=== PATIENT | male | born 1970 | race Asian ===

== ENCOUNTER 2021-04-07 16:34 | Emergency (ER) | payer OTHER | END 2021-04-07 19:00 | disposition home or self-care (01) | LOC: EMS 16:43 | DX: S39.012A Strain of muscle, fascia and tendon of lower back, initial encounter (principal); S80.01XA Contusion of right knee, initial encounter; V49.49XA Driver injured in collision with other motor vehicles in traffic accident, initial encounter; Y93.89 Activity, other specified; Y92.89 Other specified places as the place of occurrence of the external cause; Y99.8 Other external cause status | CPT/HCPCS: 72100; 99284; 73562-TC; Z7502 ==

== ENCOUNTER 2024-10-30 15:19 | Emergency (ER) | payer OTHER ==
[~2024-10-30] VITALS: Ht 170.2 cm; Wt 72.7 kg
[2024-10-30 15:36] VITALS: TEMP 97.6
[2024-10-30] MEDS: KETOROLAC TROMETHAMINE 30 MG/ML VIAL IM ONE (18:14)
[2024-10-30] MEDS: LIDOCAINE 5% TRANSDERMAL PATCH TD ONE (18:16)
[2024-10-30 21:03] VITALS: BP 160/98; PULSE 77; RESP 18; O2SAT 96
[2024-10-30] MEDS ORDERED: METH-812 PO (23:29)
== END 2024-10-30 23:00 | disposition home or self-care (01) ==
LOC: EMS 15:23
DX: S46.912A Strain of unspecified muscle, fascia and tendon at shoulder and upper arm level, left arm, initial encounter (principal); V49.40XA Driver injured in collision with unspecified motor vehicles in traffic accident, initial encounter; V89.2XXA Person injured in unspecified motor-vehicle accident, traffic, initial encounter; Y93.89 Activity, other specified; Y92.488 Other paved roadways as the place of occurrence of the external cause; Y99.8 Other external cause status
CPT/HCPCS: 99284; 29105; 73030; 73070; 96372; J1885